=== PATIENT | female | born 1990 | race Caucasian/White ===

== ENCOUNTER 2022-05-13 20:02 | Outpatient (CLI) | payer SELFPAY | END 2022-05-13 20:03 | disposition home or self-care (01) | LOC: AMB 05-20 10:50 | PROVIDERS: Visit Provider Emergency Medicine | DX: F29 Unspecified psychosis not due to a substance or known physiological condition (principal) ==

== ENCOUNTER 2022-05-15 03:17 | Outpatient (CLI) | payer SELFPAY | END 2022-05-15 03:18 | disposition home or self-care (01) | LOC: AMB 05-20 12:09 | PROVIDERS: Visit Provider Family Medicine | DX: F41.9 Anxiety disorder, unspecified (principal); R20.0 Anesthesia of skin | CPT/HCPCS: A0425; A0429 ==

== ENCOUNTER 2022-05-15 03:30 | Emergency (ER) | payer SELFPAY ==
[2022-05-15 04:30] VITALS: BP 117/88; PULSE 92; RESP 22; TEMP 36.3; O2SAT 98; BMI 20.9
--- NOTE | 2022-05-15 05:30 | ED.NURSE ---
EMR Downtime Record: 0340 Triage complete 0416 MD in to assess patient 0501 Patient ambulatory to BR and urine sample is collected.
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
[2022-05-15 05:56] LABS: Amphetamine Screen Urine Negative (Negative); Barbiturate Screen Urine Negative (Negative); Benzodiazepines Screen Urine Negative (Negative); Cannabinoid Screen Urine Negative (Negative); Cocaine Screen Urine Negative (Negative); Methadone Screen Urine Negative (Negative); Methamphetamines Screen Urine Negative (Negative); Opiate Screen Urine Negative (Negative); Phencyclidine Screen Urine Negative (Negative)
[2022-05-15 05:57] LABS: Buprenorphine Screen Urine Negative (Negative); Oxycodone Screen Urine Negative (Negative); Tricyclic Antidepressant Urine Negative (Negative)
[2022-05-15 06:12] LABS: Appearance Urine Clear (Clear); Bilirubin Urine Negative (Negative); Color Urine Yellow (Yellow); Glucose Urine Negative (Negative); Ketones Urine Negative (Negative)
[2022-05-15 06:13] LABS: Blood Urine Trace-intact (Negative); Leukocyte Esterase Urine Negative (Negative); Nitrite Urine Negative (Negative); Protein Urine Negative (Negative); RBC Urine 0-2 (0-2); Urobilinogen Urine 0.2 (0.2-1.0)
[2022-05-15 06:22] LABS: Basophils Percent Auto 0.4 % (0.0-3.0); Eosinophils Percent Auto 2.6 % (0.0-7.0); Hematocrit 42.5 % (33.0-51.0); Hemoglobin* 14.2 gm/dL (12.0-16.0); Mean Corpuscular HGB Conc 33 gm/dL (32-36); Mean Corpuscular Hemoglobin 30 pg (26-34); Mean Corpuscular Volume 88 fL (80-100); Monocytes Percent Auto 7.9 % (0.0-11.0); Neutrophils Percent Auto 59.6 % (42.0-72.0); Platelet Count* 265 K/uL (140-440); RDW Coefficient of Variation % 12.5 % (11.5-15.5); Red Blood Count 4.81 m/uL (4.00-5.20); White Blood Count* 11.35 K/uL (4.50-11.00)
[2022-05-15 06:23] LABS: Immature Granulocytes Pct Auto 0.5 %; Slide Review Reflex No
[2022-05-15 06:31] LABS: Albumin* 4.2 g/dL (3.3-5.0); Chloride* 107 mmol/L (96-114); Glucose* 102 mg/dL (60-115); Total Protein* 6.7 g/dL (6.0-8.3)
[2022-05-15 06:32] LABS: Blood Urea Nitrogen* 9 mg/dL (5-24); Carbon Dioxide* 32 mmol/L (20-32); Creatinine* 0.5 mg/dL (0.5-1.5); Estimated Glomerular Filt Rate 127.72; Potassium* 3.5 mmol/L (3.6-5.1); Sodium* 142 mmol/L (135-149)
[2022-05-15 06:33] LABS: Alanine Aminotransferase* 16 U/L (4-35); Alkaline Phosphatase* 71 U/L (40-150); Aspartate Amino Transferase* 18 U/L (12-35); Bilirubin Direct* 0.3 mg/dL (0.0-0.5); Bilirubin Total* 0.4 mg/dL (0.1-1.5); Calcium* 8.9 mg/dL (8.4-10.6)
--- NOTE | 2022-05-15 06:57 | ED.NURSE ---
Patient speaking with DEC frame stripper and crusher
[2022-05-15 07:19] LABS: Basophils Absolute Auto 0.04 K/uL (0.00-0.30); Immature Granulocytes Abs Auto 0.06 K/uL (0.00-0.30); Lymphocytes Absolute Auto 3.29 K/uL (0.90-2.90); Neutrophils Absolute Auto 6.76 K/uL (1.7-7.0)
[2022-05-15 08:01] VITALS: BP 106/81; PULSE 78; RESP 14; O2SAT 98
--- NOTE | 2022-06-06 10:40 | ED.NURSE ---
Call from [facility] regarding Ativan rx script. Script written on 05/15/[address] Martines, pt attempting to fill rx today. No quantity on rx from Dr. Martines. Dr. Ricks in ED today stated to do quantity of 10 for rx. [facility] notified.
== END 2022-05-15 08:16 | disposition home or self-care (01) ==
PROVIDERS: Emergency Provider Family Medicine
DX: G70.9 Myoneural disorder, unspecified (principal); F41.9 Anxiety disorder, unspecified
CPT/HCPCS: 36415; 80048; 80076; 80306; 81003; 81015; 84443; 85025; 99282; 99283; 99284